=== PATIENT | male | born 1990 | race Caucasian/White ===

== ENCOUNTER 2020-10-16 14:08 | Observation (INO) | payer MEDICARE, MEDICAID, SELFPAY ==
[2020-10-16 14:21] VITALS: BMI 27.9
[2020-10-16 14:30] VITALS: BP 137/97; PULSE 93; RESP 16; TEMP 37.1; O2SAT 97
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
[2020-10-16 20:18] VITALS: BP 133/89; PULSE 81; RESP 18; TEMP 36.5; O2SAT 97
[2020-10-16] MEDS: hyDROXYzine 25 mg Capsule 50 MG PO (21:28)
[2020-10-16] MEDS: quetiapine 100 mg Tablet PO (21:29)
[2020-10-16] MEDS: trazodone 50 mg Tablet 100 MG PO (21:29)
--- NOTE | 2020-10-16 21:30 | PC.NURSE ---
trazodone and visteril , both 50mg were given per patient request for sllep and anxiety.
[2020-10-16 22:00] VITALS: BP 133/89; PULSE 81; RESP 18; TEMP 36.5; O2SAT 97
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
[2020-10-17 06:00] VITALS: BP 130/89; PULSE 95; RESP 18; TEMP 36.7; O2SAT 96
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
[2020-10-17 13:17] VITALS: BP 130/89; PULSE 95; RESP 18; TEMP 36.7; O2SAT 96
== END 2020-10-17 15:07 | disposition home or self-care (01) ==
PROVIDERS: Admitting Provider Psychiatry & Neurology Child & Adolescent Psychiatry; Visit Provider Psychiatry & Neurology Child & Adolescent Psychiatry
DX: R45.851 Suicidal ideations (principal); F43.21 Adjustment disorder with depressed mood; F43.10 Post-traumatic stress disorder, unspecified; Q86.0 Fetal alcohol syndrome (dysmorphic)
CPT/HCPCS: G0378; G0379